=== PATIENT | male | born 1995 | race Hispanic/Latino ===

== ENCOUNTER 2019-02-10 08:45 | Emergency (ER) | payer SELFPAY ==
[2019-02-10 09:26] LABS: #Basophils 0.1 thou/uL (0.0-0.2); #Eosinphils 0.1 thou/uL (0.0-0.7); #Lymphocytes 2.7 thou/uL (1.20-3.40); #Monocytes 0.5 thou/uL (0.11-0.59); #Neutrophils 3.2 thou/uL (1.40-6.50); %Basophils 1.8 % (0.0-1.0); %Eosinophils 2.1 % (0.0-10.0); %Lymphocytes 40.7 % (21.0-51.0); %Monocytes 6.9 % (0.0-10.0); %Neutrophils 48.5 % (42.0-75.0); Hemoglobin 18.9 g/dL (14.0-18.0); Mean Corpuscular HGB CONC 34.1 g/dL (32.0-36.0); Mean Corpuscular Hemoglobin 31.5 pg (27.0-31.0); Mean Corpuscular Volume 92.2 fL (78.0-98.0); Mean Platelet Volume 8.4 fL (7.4-10.4); Platelet Count 183 thou/uL (130-400); RBC Distribution Width 11.6 % (11.5-14.5); Red Blood Cell (RBC) Count 6.01 mill/uL (4.70-6.10); White Blood Cell (WBC) Count 6.5 thou/uL (4.8-10.8)
[2019-02-10 09:47] LABS: ALT (SGPT) 46 U/L (8-55); AST (SGOT) 21 U/L (5-34); Albumin 4.3 g/dL (3.5-5.0); Alkaline Phosphatase 56 U/L (40-150); Anion Gap 11 mmol/L (10-20); BUN (Urea Nitrogen) 15 mg/dL (8.9-20.6); Bilirubin, Total 0.9 mg/dL (0.2-1.2); Calc. Creatinine Clearance 0 mL/min (70-130); Calcium 9.7 mg/dL (7.8-10.44); Carbon Dioxide 27 mmol/L (22-29); Chloride 103 mmol/L (98-107); Estimated GFR-MDRD 83; Globulin 2.8 g/dL (2.4-3.5); Glucose 95 mg/dL (70-105); Potassium 4.1 mmol/L (3.5-5.1); Protein, Total 7.1 g/dL (6.0-8.3); Sodium 137 mmol/L (136-145)
[2019-02-10 11:00] LABS: Bilirubin Negative (Negative); Blood, Urine Negative (Negative); Clarity Clear (Clear); Glucose, Urine (Dipstick) Normal (Negative); Leukocyte Negative Leu/uL (Negative); Nitrite Negative (Negative); Protein, Urine (Dipstick) 10 mg/dL (Neg-Trace)
--- NOTE | 2019-02-10 11:57 | CT ---
CT ABDOMEN AND PELVIS WITH IV CONTRAST: 02/10/2019 PROVIDED CLINICAL HISTORY: Abdominal pain. FINDINGS: The visualized lung base are free of significant opacity. There is a peripheral, somewhat poorly defined area of diminished attenuation involving the anterior aspect of the right kidney, superiorly. There is no evidence for hydronephrosis. The solid abdomina l organs demonstrate an otherwise unremarkable CT appearance. There is no bowel dilatation, inflammatory fat stranding, free fluid, or free air apparent. The appe ndix appears normal. The osseous structures demonstrate no concerning lytic or blastic lesions. IMPRESSION: Focal area of vague diminished attenuation involving the right kidney may reflect changes related to pyelonephritis. POS: [id number]
[2019-02-10] MEDS ORDERED: ISOVUE-370 76%-LOCM 1 ML ONE (13:49)
== END 2019-02-10 13:05 | disposition home or self-care (01) ==
LOC: ERS 08:45
DX: N28.9 Disorder of kidney and ureter, unspecified (principal); I10 Essential (primary) hypertension
CPT/HCPCS: 36415; 74177; 80053; 81003; 85025; Q9966

== ENCOUNTER 2019-09-12 19:20 | Emergency (ER) | payer SELFPAY ==
[2019-09-12] MEDS ORDERED: Bicillin LA 1.2 MILLION UNITS/2 ML SYRINGE ONE (20:39)
== END 2019-09-12 21:05 | disposition home or self-care (01) ==
LOC: ERS 19:20
DX: J02.0 Streptococcal pharyngitis (principal)
CPT/HCPCS: 96372; 99283; J0561

== ENCOUNTER 2019-12-21 07:56 | Emergency (ER) | payer SELFPAY | END 2019-12-21 09:15 | disposition home or self-care (01) | LOC: ERS 07:56 | DX: R42 Dizziness and giddiness (principal); E78.5 Hyperlipidemia, unspecified; E78.00 Pure hypercholesterolemia, unspecified | CPT/HCPCS: 36416; 93005 ==

== ENCOUNTER 2020-09-18 21:43 | Emergency (ER) | payer SELFPAY ==
[2020-09-18] MEDS ORDERED: Metoclopramide HCl 10 MG/2 ML VIAL ONE (22:30)
[2020-09-18] MEDS ORDERED: Ketorolac Tromethamine 30 MG/ML VIAL ONE (22:30)
== END 2020-09-18 23:03 | disposition home or self-care (01) ==
LOC: ERS 21:43
DX: R51.9 Headache, unspecified (principal); Z79.899 Other long term (current) drug therapy
CPT/HCPCS: 70450; 96372; J1885; J2765

== ENCOUNTER → 2020-09-18 | Emergency (ER) | payer SELFPAY | LOC: ERS 21:37 | DX: G44.209 Tension-type headache, unspecified, not intractable (principal) | CPT/HCPCS: 96365; 96366; 96375 ==